=== PATIENT | male | born 1995 | race Caucasian/White ===

== ENCOUNTER 2018-10-02 12:00 | Emergency (ER) | payer BC ==
--- NOTE | 2018-10-02 14:06 | EDPHY ---
H & P Time Seen by Provider: 10/02/18 13:29 HPI/ROS: CHIEF COMPLAINT: Anxiety, depression HISTORY OF PRESENT ILLNESS: The patient is a 23-year-old male who presents emergency department with anxiety and depression. Patient states he has had a longstanding history of both of these conditions. He was seen at therapist over the summer but has stopped. The patient is not been on any medications for the past few years. He has been trying to self treat with THC and natural path extremities. Patient feels slightly more anxious and depressed. Patient states he has had thoughts of self-harm but is assured that he will not harm himself. Patient would like to arrange follow-up. REVIEW OF SYSTEMS: 10 systems were reveiwed and are negative with the exception of the elements mentioned in the history of present illness. Past Medical/Surgical History: Includes anxiety and depression Smoking Status: Current every day smoker Physical Exam: Vitals noted GENERAL: Well-appearing, in no acute distress, alert. HEENT: Eyes normal to inspection, normal pharynx, no signs of dehydration. NECK: Normal, supple. RESPIRATORY: Clear to auscultation bilaterally, no rales, rhonchi or wheezing. CVS: Regular rate and rhythm, no rubs, murmurs, or gallops. ABDOMEN: Soft, nontender, nondistended, no organomegaly. BACK: Normal to inspection, no CVA tenderness. SKIN: Normal color, no rash, warm, dry. No pallor. EXTREMITIES: No pedal edema, no calf tenderness, no Homans sign or cords, no joint swelling. NEURO/PSYCH: Alert and oriented, normal mood and affect, normal motor sensory exam. No obvious cranial nerve deficit. Constitutional: Initial Vital Signs Temperature (C) 36.9 C 10/02/18 12:30 Heart Rate 106 H 10/02/18 12:30 Respiratory Rate 16 10/02/18 12:30 Blood Pressure 159/90 H 10/02/18 12:30 O2 Sat (%) 99 10/02/18 12:30 O2 Delivery Mode Room Air Allergies/Adverse Reactions: No Known Allergies Allergy (Unverified 10/02/18 12:34) Home Medications: Medication Instructions Recorded NK [No Known Home Meds] 10/02/18 Medical Decision Making ED Course/Re-evaluation: In the emergency department I discussed possible etiologies with the patient. I discussed treatment options. [facility] evaluated the patient. They arranged follow -up. Patient was given his contact information. Patient will be given Xanax 7. Patient was given warnings prior to leaving. He will return with worsening symptoms. Differential Diagnosis: Differential includes but is not limited to depression, suicidal ideation, homicidal ideation, thyroid disease, anxiety Departure - Departure Disposition: Home, Routine, Self-Care Clinical Impression: Anxiety Depression Qualifiers: Depression Type: unspecified Qualified Code(s): F32.9 - Major depressive disorder, single episode, unspecified Condition: Good Instructions: Depression (ED), Anxiety (ED) Additional Instructions: Return with increasing anxiety, depression, feelings of despair any other concerns Referrals: Romulo Serrano DO [Doctor of Osteopathy] - 5-7 days, if not improved
[2018-10-02 14:19] VITALS: BP 129/88
--- NOTE | 2018-10-02 14:41 | ASMTLCPROG ---
Notes Note: Notes: [facility] referral request Pt reported that he has a hx of depression/anxiety/ADHD. pt stated he went ff his medication this past summer and now he feels like he is feeling depressed again. Pt reports his symptoms are similar to how he felt before he took medication. Pt stated lately, he has had difficulty making decisions, getting out of bed and "doing the most simple tasks." Pt stated this is how he felt prior to having his first major depressive episode. Pt stated he is having passive SI but stated he does not have a plan and does not want to kill himself. Pt stated he called one psychiatrist but won't be able to get in for 1 month. He stopped going to his therapist last summer because he started to feel better and now, pt states he is embarrassed to call her back to start therapy again. Pt was given resources to [facility] in [place] and also given resources to [facility]. Date Signed: 10/02/2018 02:41 PM Electronically Signed By:Erin Sloan
== END 2018-10-02 14:16 | disposition home or self-care (01) ==
DX: F41.9 Anxiety disorder, unspecified (principal); F32.9 Major depressive disorder, single episode, unspecified; F17.200 Nicotine dependence, unspecified, uncomplicated

== ENCOUNTER 2019-03-20 13:31 | Emergency (ER) | payer BC ==
--- NOTE | 2019-03-20 13:49 | EDPHY ---
H & P Stated Complaint: dizzy, weak, episodes of near-syncope x 2 days, sleeping a lot , hungry Time Seen by Provider: 03/20/19 13:49 HPI/ROS: CHIEF COMPLAINT: Presyncope HISTORY OF PRESENT ILLNESS: The patient presents the ED with 2 days of presyncope, nausea, fatigue, excessive sleepiness and a mild headache. The patient denies any history of fall or trauma. He denies fevers, sore throat, cough. He reports normal p.o. Intake. The patient denies significant past medical history. The patient takes no regular medications. The patient denies any exertional chest pain or dyspnea. The patient denies any melena. REVIEW OF SYSTEMS: A comprehensive 10 point review of systems is otherwise negative aside from elements mentioned in the history of present illness. Source: Patient Exam Limitations: No limitations - Personal History Current Tetanus Diphtheria and Acellular Pertussis (TDAP): Yes - Medical/Surgical History Hx Asthma: No Hx Chronic Respiratory Disease: No Hx Diabetes: No Hx Cardiac Disease: No Hx Renal Disease: No Hx Cirrhosis: No Hx Alcoholism: No Hx HIV/AIDS: No Hx Splenectomy or Spleen Trauma: No Other PMH: depresiion/anxiety, adhd - Social History Smoking Status: Former smoker - Physical Exam Exam: General Appearance: Alert, no distress Eyes: Pupils equal and round no pallor or injection ENT, Mouth: Mucous membranes moist Respiratory: There are no retractions, lungs are clear to auscultation Cardiovascular: Regular rate and rhythm Gastrointestinal: Abdomen is soft and nontender, no masses, bowel sounds normal Neurological: A&O, normal motor function, normal sensory exam, normal cranial nerves Skin: Warm and dry, no rashes Musculoskeletal: Neck is supple nontender Extremities: symmetrical, full range of motion Psychiatric: Patient is oriented X 3, there is no agitation Constitutional: Initial Vital Signs Temperature (C) 37.1 C 03/20/19 13:41 Heart Rate 72 03/20/19 13:41 Respiratory Rate 16 03/20/19 13:41 Blood Pressure 125/71 H 03/20/19 13:41 O2 Sat (%) 99 03/20/19 13:41 O2 Delivery Mode Room Air Allergies/Adverse Reactions: No Known Allergies Allergy (Verified 03/20/19 13:40) Home Medications: Medication Instructions Recorded ALPRAZolam [Xanax 0.5 MG (*)] 0.5 mg PO TID #7 tab 10/02/18 Medical Decision Making - Diagnostics EKG Interpretation: EKG: Complete interpretation has been separately recorded in the [employer] archive. Summary impression: Sinus rhythm, rate 73, no ischemic changes noted ED Course/Re-evaluation: Patient presents the ED with complaints of fatigue and presyncope. The patient has no significant past medical history. He is noted to be hemodynamically stable. The patient does have some symptoms of mild headache and slight nausea. I suspect he likely is experiencing a slight viral illness. Clinically the patient has no evidence of pneumonia, meningitis or any acute intra-abdominal condition. Workup in the emergency department consisted of a normal EKG, unremarkable laboratory testing including CBC, serum chemistries, TSH and troponin. Patient was treated with IV fluids and Toradol in the emergency department. He is now ambulatory and feeling much better. At this point time I do not feel that further workup is indicated. The patient will be discharged home with instructions to return for worsening symptoms or other concerns. Plan for supportive care, Tylenol, Advil as needed. Differential Diagnosis: Differential diagnosis considered includes viral upper respiratory infection, dehydration, metabolic abnormality, anemia, arrhythmia - Data Points Laboratory Results: Laboratory Results 03/20/19 14:00 03/20/19 14:00 03/20/19 03/20/19 03/20/19 14:05 14:00 14:00 WBC 5.67 10^3/uL 10^3/uL (3.80-9.50) RBC 5.13 10^6/uL 10^6/uL (4.40-6.38) Hgb 17.2 g/dL g/dL (13.7-17.5) Hct 47.2 % % (40.0-51.0) MCV 92.0 fL fL (81.5-99.8) MCH 33.5 pg pg (27.9-34.1) MCHC 36.4 g/dL g/dL (32.4-36.7) RDW 12.3 % % (11.5-15.2) Plt Count 248 10^3/uL 10^3/uL (150-400) MPV 9.9 fL fL (8.7-11.7) Neut % (Auto) 58.7 % % (39.3-74.2) Lymph % (Auto) 24.9 % % (15.0-45.0) [place] % (Auto) 7.6 % % (4.5-13.0) Eos % (Auto) 6.5 % % (0.6-7.6) Baso % (Auto) 1.9 % H % (0.3-1.7) Nucleat RBC Rel Count 0.0 % % (0.0-0.2) Absolute Neuts (auto) 3.33 10^3/uL 10^3/uL (1.70-6.50) Absolute Lymphs (auto) 1.41 10^3/uL 10^3/uL (1.00-3.00) Absolute Monos (auto) 0.43 10^3/uL 10^3/uL (0.30-0.80) Absolute Eos (auto) 0.37 10^3/uL 10^3/uL (0.03-0.40) Absolute Basos (auto) 0.11 10^3/uL H 10^3/uL (0.02-0.10) Absolute Nucleated RBC 0.00 10^3/uL 10^3/uL (0-0.01) Immature Gran % 0.4 % % (0.0-1.1) Immature Gran # 0.02 10^3/uL 10^3/uL (0.00-0.10) Sodium 139 mEq/L mEq/L (135-145) Potassium 4.0 mEq/L mEq/L (3.5-5.2) Chloride 105 mEq/L mEq/L (97-110) Carbon Dioxide 25 mEq/l mEq/l (22-31) Anion Gap 9 mEq/L mEq/L (6-14) BUN 11 mg/dL mg/dL (7-23) Creatinine 0.7 mg/dL mg/dL (0.7-1.3) Estimated GFR > 60 Glucose 89 mg/dL mg/dL (70-100) Calcium 9.4 mg/dL mg/dL (8.5-10.4) POC Troponin I 0.00 ng/mL ng/mL (0.00-0.08) TSH 0.756 uIU/mL uIU/mL (0.465-4.680) Medications Given: Discontinued Medications Sodium Chloride (Ns) 1,000 mls @ 0 mls/hr IV EDNOW ONE; Wide Open PRN Reason: Protocol Stop: 03/20/19 14:31 Last Admin: 03/20/19 14:37 Dose: 1,000 mls Ketorolac Tromethamine (Toradol) 30 mg IVP EDNOW ONE Stop: 03/20/19 14:32 Last Admin: 03/20/19 14:37 Dose: 30 mg Point of Care Test Results: Chemistry 03/20/19 14:05 POC Troponin I 0.00 ng/mL ng/mL (0.00-0.08) Departure - Departure Disposition: Home, Routine, Self-Care Clinical Impression: Vasovagal near-syncope Condition: Good Instructions: Syncope (ED) Additional Instructions: 1. The testing in the emergency department today demonstrates no significant abnormality. 2. Do believe her symptoms are likely the result of a mild viral infection and slight dehydration. I would recommend increasing your fluid intake and using Tylenol and ibuprofen as needed. 3. Please return to the ED for markedly worsening symptoms or other concerns. Referrals: NONE *PRIMARY CARE P,. [Primary Care Provider] - As per Instructions
[2019-03-20 14:13] LABS: PLATELET COUNT 248 10^3/uL (150-400)
[2019-03-20] MEDS: KETOROLAC 30 MG/1 ML SDV IVP ONE (14:37)
[2019-03-20] MEDS: NS 1,000 ML IV ONE (14:37)
--- NOTE | 2019-03-20 14:59 | CPEKG ---
Test Reason : OPEN Blood Pressure : / mmHG Vent. Rate : 073 BPM Atrial Rate : 076 BPM P-R Int : 131 ms QRS Dur : 108 ms QT Int : 396 ms P-R-T Axes : 065 087 065 degrees QTc Int : 437 ms Sinus rhythm Confirmed by Clay Real ([id number]) on 03/20/2019 2:59:23 PM Referred By: Clay Real Confirmed By:Clay Real
[2019-03-20 15:20] VITALS: BP 136/87
== END 2019-03-20 15:24 | disposition home or self-care (01) ==
DX: R55 Syncope and collapse (principal); E86.9 Volume depletion, unspecified; F41.8 Other specified anxiety disorders
CPT/HCPCS: 84484-ER; 96374; J1885